=== PATIENT | male | born 1990 | race Caucasian/White ===

== ENCOUNTER 2017-11-23 17:01 | Emergency (ER) | payer MEDICAID ==
[2017-11-23 17:03] VITALS: BMI 30.2
[2017-11-23 17:18] VITALS: RESP 18; TEMP 98; O2SAT 98
--- NOTE | 2017-11-23 17:26 | ED PDOC ---
Arrival/HPI - General Chief Complaint: Male Genitourinary Time Seen by Provider: 11/23/17 17:08 Historian: Patient - History of Present Illness Narrative History of Present Illness (Text): 11/23/17 17:26 A 27 year old male, whose past medical history includes , presents to the emergency department complaining of intermittent left testicular pain for the past 2 weeks. No pain at this time. Patient reports the pain is sharp and states the last 3 days swelling was present but has improved since yesterday. Patient notes he experiences the same symptoms on his right testicle but not as severe. Patient denies any back pain, abdominal pain, urinary symptoms, trauma, penile discharge or any other complaints. PMD: Dr. Padilla (but only by insurance card, has not recently seen a PMD) Symptom Onset: Gradual Symptom Course: Improving Activities at Onset: Light Context: Home Past Medical History - Provider Review Nursing Documentation Reviewed: Yes - Past History Past History: No Previous - Tetanus Immunization Tetanus Immunization: Up to Date - Past Medical History Past Medical History: No Previous - Integumentary Other/Comment: SCALP LAC - Psychiatric Hx Psychophysiologic Disorder: No Hx Depression: No Hx Emotional Abuse: No Hx Physical Abuse: No Hx Substance Use: No - Past Surgical History Past Surgical History: No Previous - Surgical History Other/Comment: cyst removal from right foot - Suicidal Assessment Feels Threatened In Home Enviroment: No Family/Social History - Physician Review Nursing Documentation Reviewed: Yes Family/Social History: Unknown Family HX Smoking Status: Never Smoked Hx Alcohol Use: Yes Hx Substance Use: No Hx Substance Use Treatment: No Allergies/Home Meds Allergies/Adverse Reactions: Allergies No Known Allergies Allergy (Verified 11/23/17 17:17) Home Medications: Home Meds Medication Instructions Recorded Confirmed No Known Home Med 11/23/17 11/23/17 Review of Systems - Physician Review All systems were reviewed & negative as marked: Yes - Review of Systems Gastrointestinal: absent: Abdominal Pain Genitourinary Male: Other (+left testicular pain with swelling). absent: Normal (no penile discharge; no trauma ), Urinary Output Changes Musculoskeletal: absent: Back Pain Physical Exam Vital Signs Reviewed: Yes Vital Signs Temp Pulse Resp BP Pulse Ox 11/23/17 17:13 98 F 56 L 18 127/90 98 Temperature: Afebrile Blood Pressure: Normal Pulse: Regular Respiratory Rate: Normal Appearance: Positive for: Well-Appearing, Non-Toxic, Comfortable Pain Distress: None Mental Status: Positive for: Alert and Oriented X 3 - Systems Exam Head: Present: Atraumatic, Normocephalic Pupils: Present: PERRL Extroacular Muscles: Present: EOMI Conjunctiva: Present: Normal Mouth: Present: Moist Mucous Membranes Neck: Present: Normal Range of Motion Respiratory/Chest: Present: Clear to Auscultation, Good Air Exchange. No: Respiratory Distress, Accessory Muscle Use Cardiovascular: Present: Regular Rate and Rhythm, Normal S1, S2. No: Murmurs Abdomen: No: Tenderness, Distention, Peritoneal Signs Genitourinary Male: Present: Normal External Genitalia, Circumcised Penis. No: Lesions, Penile Discharge, Testicle Tenderness, Penile Swelling, Masses, Erythema, Hernias, Testicle Swelling Back: Present: Normal Inspection Upper Extremity: Present: Normal Inspection. No: Cyanosis, Edema Lower Extremity: Present: Normal Inspection. No: Edema Neurological: Present: GCS=15, CN II-XII Intact, Speech Normal, Motor Func Grossly Intact, Normal Sensory Function Skin: No: Rashes Psychiatric: Present: Alert, Oriented x 3, Normal Insight, Normal Concentration Medical Decision Making ED Course and Treatment: 11/23/17 17:31 Impression: 27 year old male presenting to the emergency department complaining of left testicular pain. Differential Diagnosis included but are not limited to: rule out varicocele vs. hydrocele; less likely torsion Plan: -- Labs -- Urinalysis -- Ultrasound -- Reassess and disposition Prior Visits: Notes and results from previous visits were reviewed. Progress Notes: 11/23/17 18:34 UA negative for UTI. Case signed out to Dr. Ronquillo to f/u US, reevaluate and disposition. - Lab Interpretations Lab Results: Lab Results 11/23/17 18:19: Urine Color Yellow, Urine Appearance Clear, Urine pH 6.5, Ur Specific [place] 1.020, Urine Protein Negative, Urine Glucose (UA) Negative, Urine Ketones Trace H, Urine Blood Negative, Urine Nitrate Negative, Urine Bilirubin Negative, Urine Urobilinogen 1.0 H, Ur Leukocyte Esterase Negative - RAD Interpretation Radiology Orders: 11/23/17 17:25 TESTES DUPLEX COMPLETE [US] Stat - Scribe Statement The provider has reviewed the documentation as recorded by the Scribe Kylie Martin All medical record entries made by the Callie were at my direction and personally dictated by me. I have reviewed the chart and agree that the record accurately reflects my personal performance of the history, physical exam, medical decision making, and the department course for this patient. I have also personally directed, reviewed, and agree with the discharge instructions and disposition. Disposition/Present on Arrival - Present on Arrival Any Indicators Present on Arrival: No History of DVT/PE: No History of Uncontrolled Diabetes: No Urinary Catheter: No History of Decub. Ulcer: No History Surgical Site Infection Following: None - Disposition Have Diagnosis and Disposition been Completed?: No Diagnosis: Testicular pain Disposition Time: 18:35 Condition: GOOD Forms: [employer] Connect (K[place]i)
[2017-11-23 18:23] LABS: PH,URINE 6.5 (4.7-8.0); URINE BILIRUBIN NEGATIVE (NEGATIVE); URINE BLOOD NEGATIVE (NEGATIVE); URINE GLUCOSE (UA) NEGATIVE (NEGATIVE); URINE LEUKOCYTE ESTERASE NEGATIVE Leu/uL (NEGATIVE); URINE PROTEIN NEGATIVE mg/dL (<30 mg/dL)
[2017-11-23 18:24] LABS: URINE APPEARANCE CLEAR (CLEAR); URINE COLOR YELLOW (YELLOW)
--- NOTE | 2017-11-23 18:48 | US ---
Date of service: 11/23/2017 HISTORY: L>R testicular pain r/o torsion/varic/hydrocele TECHNIQUE: Realtime sonography through the scrotum with color and doppler flow. COMPARISON: None Available. FINDINGS: RIGHT TESTICLE: Measures 4.2 x 1.8 x 2.2 cm. Homogeneous echotexture. Blood flow is demonstrated. RIGHT EPIDIDYMIS: Epididymal head measures approximately 1.1 x 0.7 x 1.3 cm LEFT TESTICLE: Measures 3.9 x 1.9 x 2.5 cm. Homogeneous echotexture. Blood flow is demonstrated. LEFT EPIDIDYMIS: Epididymal head measures approximately 1.0 x 0.8 x 0.0 cm. HYDROCELE: Mild right-sided hydrocele. VARICOCELE: Small right-sided varicocele. OTHER FINDINGS: None. IMPRESSION: Mild right-sided hydrocele. Small right-sided varicocele.
[2017-11-23 19:04] VITALS: BP 112/72; PULSE 61
== END 2017-11-23 19:05 | disposition home or self-care (01) ==
LOC: ED 17:01
DX: N50.812 Left testicular pain (principal)

== ENCOUNTER 2018-01-10 11:41 | Emergency (ER) | payer MEDICAID ==
[2018-01-10 11:41] VITALS: BMI 30.2
[2018-01-10 12:28] VITALS: BP 120/69; PULSE 55; RESP 18; TEMP 98.9; O2SAT 100
--- NOTE | 2018-01-10 13:39 | ED PDOC ---
Arrival/HPI - General Chief Complaint: Abnormal Skin Integrity Time Seen by Provider: 01/10/18 13:15 - History of Present Illness Narrative History of Present Illness (Text): 27 y/o M w/ no significant PMH presenting with sloughing lesions to the eyes angeline aterally. The patient reports having a pruritic, sloughing purpulish lesions that evolved around his eyes over the past couple of days. He denies decreased visual acuity, erythema, orbital pain, diplopia, fevers, nausea, headache or purulence surrounding the lesions. He recalls similar complaint some years ago where he received some topical ointment from his friend which resulted in the lesions resolving. Time/Duration: Prior to Arrival Symptom Onset: Gradual Symptom Course: Intermittent Severity Level: Mild Activities at Onset: Rest Context: Home Past Medical History - Provider Review Nursing Documentation Reviewed: Yes - Travel History Have you recently traveled outside [place] w/in the past 3 mons?: No - Past History Past History: No Previous - Infectious Disease Hx of Infectious Diseases: None - Tetanus Immunization Tetanus Immunization: Up to Date - Past Medical History Past Medical History: No Previous - Integumentary Other/Comment: SCALP LAC - Psychiatric Hx Psychophysiologic Disorder: No Hx Depression: No Hx Emotional Abuse: No Hx Physical Abuse: No Hx Substance Use: No - Past Surgical History Past Surgical History: No Previous - Surgical History Other/Comment: cyst removal from right foot - Anesthesia Hx Anesthesia: No - Suicidal Assessment Feels Threatened In Home Enviroment: No Family/Social History - Physician Review Nursing Documentation Reviewed: Yes Family/Social History: No Known Family HX Smoking Status: Never Smoked Hx Alcohol Use: Yes Hx Substance Use: No Hx Substance Use Treatment: No Allergies/Home Meds Allergies/Adverse Reactions: Allergies No Known Allergies Allergy (Verified 11/23/17 17:17) Review of Systems - Physician Review All systems were reviewed & negative as marked: Yes - Review of Systems Skin: Skin Lesions (purple papules noted to eyes b/l) Physical Exam Vital Signs Reviewed: Yes Vital Signs Temp Pulse Resp BP Pulse Ox 01/10/18 12:25 98.9 F 55 L 18 120/69 100 Temperature: Afebrile Blood Pressure: Normal Pulse: Bradycardic Respiratory Rate: Normal Appearance: Positive for: Well-Appearing, Non-Toxic, Comfortable Mental Status: Positive for: Alert and Oriented X 3 - Systems Exam Head: Present: Atraumatic, Normocephalic Pupils: Present: PERRL Extroacular Muscles: Present: EOMI, Other (0.5cm circular purple macules noted to upper eyelid of L eye and outer corner of R eye) Conjunctiva: Present: Normal Mouth: Present: Moist Mucous Membranes Neck: Present: Normal Range of Motion Respiratory/Chest: Present: Clear to Auscultation, Good Air Exchange. No: Respiratory Distress, Accessory Muscle Use Cardiovascular: Present: Regular Rate and Rhythm, Normal S1, S2 Abdomen: Present: Normal Bowel Sounds. No: Tenderness Upper Extremity: Present: Normal Inspection. No: Cyanosis Lower Extremity: Present: Normal Inspection. No: Edema Neurological: Present: GCS=15, CN II-XII Intact, Speech Normal Skin: Present: Warm, Dry, Normal Color, Other (Purple non-erythematous, non-tender macules noted to eyes b/l). No: Rashes Psychiatric: Present: Alert, Oriented x 3, Normal Insight, Normal Concentration Medical Decision Making ED Course and Treatment: Impression 27 y/o M w/ pruritic lesions around the eyes Progress Notes Patient advised to follow up with his PCP. Scripts provided for eyes. He is stable for discharge. Disposition/Present on Arrival - Present on Arrival Any Indicators Present on Arrival: No History of DVT/PE: No History of Uncontrolled Diabetes: No Urinary Catheter: No History of Decub. Ulcer: No History Surgical Site Infection Following: None - Disposition Have Diagnosis and Disposition been Completed?: Yes Diagnosis: Dermatitis Disposition: HOME/ ROUTINE Disposition Time: 13:37 Patient Plan: Discharge Discharge Instructions (ExitCare): Eczema (Atopic Dermatitis) (DC) Print Language: CROATIAN Prescriptions: Hydrocortisone [Cortisone] 28 gm TP DAILY #1 cream..g. Referrals: Isatu Gill MD [Medical Doctor] - Follow up with primary [facility] [Outside] - Follow up with primary Forms: [employer] (Gabonese), WORK NOTE
== END 2018-01-10 14:23 | disposition home or self-care (01) ==
LOC: ED 11:41
DX: L30.9 Dermatitis, unspecified (principal)

== ENCOUNTER 2018-08-03 17:25 | Emergency (ER) | payer SELFPAY ==
[2018-08-03 17:27] VITALS: BMI 30.2
[2018-08-03 17:40] VITALS: TEMP 98.5
[2018-08-03 18:21] VITALS: BP 132/73; PULSE 65; RESP 18; O2SAT 98
--- NOTE | 2018-08-03 18:57 | ED PDOC ---
Arrival/HPI - General Historian: Patient - History of Present Illness Narrative History of Present Illness (Text): 08/03/18 19:47 27-year-old male presents today with a hyperpigmented area to the lateral canthus of the right eye. Patient states he has had this hyperpigmented area for a long period of time and it seems to be increasing in size. He is complaining of some pruritus to the skin. Patient states he was seen in the past for this and was given a steroid cream without improvement. Patient denies nasal congestion or sore throat. He denies fevers or chills. He denies blurred vision. No dizziness or weakness. No chest pain or shortness of breath. No other complaints <Alberta Bell - Last Filed: 08/03/18 19:43> <Herber Tinoco - Last Filed: 08/08/18 12:07> - General Chief Complaint: Abnormal Skin Integrity Time Seen by Provider: 08/03/18 17:41 Past Medical History - Provider Review Nursing Documentation Reviewed: Yes - Travel History Have you recently traveled outside [place] w/in the past 3 mons?: No - Past History Past History: No Previous - Infectious Disease Hx of Infectious Diseases: None - Tetanus Immunization Tetanus Immunization: Up to Date - Past Medical History Past Medical History: No Previous - Cardiac Hx Cardiac Disorders: No - Pulmonary Hx Respiratory Disorders: No - Neurological Hx Neurological Disorder: No - HEENT Hx HEENT Disorder: No - Renal Hx Renal Disorder: No - Endocrine/Metabolic Hx Endocrine Disorders: No - Hematological/Oncological Hx Blood Disorders: No - Integumentary Hx Dermatological Disorder: Yes Other/Comment: SCALP LAC - Musculoskeletal/Rheumatological Hx Musculoskeletal Disorders: No - Gastrointestinal Hx Gastrointestinal Disorders: No - Genitourinary/Gynecological Hx Genitourinary Disorders: No - Psychiatric Hx Psychophysiologic Disorder: No Hx Substance Use: No - Past Surgical History Past Surgical History: No Previous - Surgical History Other/Comment: cyst removal from right foot - Anesthesia Hx Anesthesia: No - Suicidal Assessment Feels Threatened In Home Enviroment: No <Alberta Bell - Last Filed: 08/03/18 19:43> Family/Social History - Physician Review Nursing Documentation Reviewed: Yes Family/Social History: Unknown Family HX Smoking Status: Never Smoked Hx Alcohol Use: Yes Hx Substance Use: No Hx Substance Use Treatment: No <Alberta Bell - Last Filed: 08/03/18 19:43> Allergies/Home Meds <Alberta Bell - Last Filed: 08/03/18 19:43> <Herber Tinoco - Last Filed: 08/08/18 12:07> Allergies/Adverse Reactions: Allergies No Known Allergies Allergy (Verified 08/03/18 17:36) Review of Systems - Review of Systems Constitutional: absent: Fatigue, Fevers Eyes: absent: Vision Changes, Photophobia, Eye Pain ENT: absent: Sore Throat, Sinus Congestion Respiratory: absent: SOB, Cough Cardiovascular: absent: Chest Pain, Palpitations Gastrointestinal: absent: Abdominal Pain, Constipation, Diarrhea, Nausea, Vomiting Musculoskeletal: absent: Arthralgias Skin: Rash, Pruritis Neurological: absent: Headache, Dizziness Psychiatric: absent: Anxiety, Depression <Alberta Bell - Last Filed: 08/03/18 19:43> Physical Exam Vital Signs Reviewed: Yes Vital Signs Temp Pulse Resp BP Pulse Ox 08/03/18 18:20 65 18 132/73 98 08/03/18 17:36 98.5 F 60 16 136/86 99 Temperature: Afebrile Blood Pressure: Normal Pulse: Regular Respiratory Rate: Normal Appearance: Positive for: Well-Appearing, Non-Toxic, Comfortable Pain Distress: None Mental Status: Positive for: Alert and Oriented X 3 - Systems Exam Head: Present: Atraumatic, Other (right eye; there is an area of hyperpigmentation along the lateral canthus. No erythema. No tenderness. Slightly dry skin noted. No abscess or cellulitis.). No: Tenderness, Swelling, Ecchymosis, Abrasion, Laceration Pupils: Present: PERRL Extroacular Muscles: Present: EOMI Conjunctiva: Present: Normal Mouth: Present: Moist Mucous Membranes Neck: Present: Normal Range of Motion Respiratory/Chest: Present: Clear to Auscultation Cardiovascular: Present: Regular Rate and Rhythm Neurological: Present: GCS=15, Speech Normal Skin: Present: Warm, Dry Psychiatric: Present: Alert, Oriented x 3 <Alberta Bell - Last Filed: 08/03/18 19:43> Vital Signs Temp Pulse Resp BP Pulse Ox 08/03/18 18:20 65 18 132/73 98 08/03/18 17:36 98.5 F 60 16 136/86 99 <EarnestHerber - Last Filed: 08/08/18 12:07> Medical Decision Making ED Course and Treatment: 08/03/18 20:12 Patient is nontoxic well-appearing no distress with stable vital signs Patient with chronic hyper pigmentation to the skin of the right eye. no trauma or injury. no signs of infection. no eye pain. Patient was advised to follow-up with the eye doctor and correctional counselor. Patient verbalizes understanding of discharge instructions and need for immediate followup. Impression: Rash follow up with the correctional counselor within the next 2 days. follow up with the eye doctor within the next 2 days. claritin once daily. keep skin moisturized. Return if symptoms worsen persist or if new concerning symptoms develop <Alberta Bell - Last Filed: 08/03/18 19:43> - PA / [employer]QUIPMENT OPERATOR / Resident Statement / has reviewed & agrees with the documentation as recorded. <Herber Tinoco - Last Filed: 08/08/18 12:07> Disposition/Present on Arrival - Present on Arrival Any Indicators Present on Arrival: No History of DVT/PE: No History of Uncontrolled Diabetes: No Urinary Catheter: No History of Decub. Ulcer: No History Surgical Site Infection Following: None - Disposition Have Diagnosis and Disposition been Completed?: Yes Disposition Time: 18:31 Patient Plan: Discharge <Alberta Bell - Last Filed: 08/03/18 19:43> <Herber Tinoco - Last Filed: 08/08/18 12:07> - Disposition Diagnosis: Rash Disposition: HOME/ ROUTINE Condition: GOOD Discharge Instructions (ExitCare): Skin Rash (DC) Additional Instructions: follow up with the correctional counselor within the next 2 days. follow up with the eye doctor within the next 2 days. claritin once daily. keep skin moisturized. Return if symptoms worsen persist or if new concerning symptoms develop Prescriptions: Loratadine [Claritin] 10 mg PO DAILY #30 tab Referrals: Isatu Gill MD [Medical Doctor] - Follow up with primary Shona Justice MD [Staff Provider] - Follow up with primary [facility] [Outside] - Follow up with primary Forms: [employer] (Slovenian), WORK NOTE
== END 2018-08-03 19:05 | disposition home or self-care (01) ==
LOC: ED 17:25
DX: R21 Rash and other nonspecific skin eruption (principal)